=== PATIENT | female | born 1950 | race Caucasian/White ===

== ENCOUNTER 2022-03-21 08:42 | Emergency (ER) | payer MEDICARE ==
[2022-03-21] MEDS ORDERED: Acetaminophen 325 MG Tab PO ONE (09:37)
[2022-03-21 10:16] LABS: TROPONIN I HIGH SENSITIVITY 6.5 pg/mL (<=60.3)
== END 2022-03-21 11:48 | disposition home or self-care (01) ==
LOC: JP.ED 08:42
DX: R07.89 Other chest pain (principal)
CPT/HCPCS: 36415; 71046; 71046-26; 80053; 83605; 83690; 84484; 85025; 93005; 93010; 99282; 99285-25; A9270-GY